=== PATIENT | female | born 1980 | race Caucasian/White ===

== ENCOUNTER 2016-03-30 13:59 | Emergency (ER) | payer MEDICAID ==
[2016-03-30 14:08] VITALS: BP 114/80; PULSE 82; RESP 20; TEMP 98.8; O2SAT 99
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
[2016-03-30] MEDS ORDERED: IBUPROFEN 800 MG TAB PO ONE (15:30)
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
[2016-03-30 16:25] VITALS: RESP 16
[2016-03-30] MEDS ORDERED: IBUP800T23 PO (16:41)
[2016-03-30] MEDS ORDERED: HYDR-3533 PO ×2 (16:43→16:46)
== END 2016-03-30 17:15 | disposition home or self-care (01) ==
LOC: PHEFT 13:59
DX: S92.901A Unspecified fracture of right foot, initial encounter for closed fracture (principal); V09.9XXA Pedestrian injured in unspecified transport accident, initial encounter
CPT/HCPCS: 29515; 73610; 73630; 99283; E0113